=== PATIENT | female | born 1945 | race African-American/Black ===

== ENCOUNTER → 2020-06-04 | Outpatient (CLI) | payer OTHER ==
[~2020-06-04] MED LIST: ACTOS15 MG PO; JANUVIA25 MG PO; LIPITOR20 MG PO; LISINOPRIL10 MG PO; NORCO 5-325 TA1 EACH PO
== END ==
LOC: CAT 07:53
PROVIDERS: ATTEND Family Medicine
DX: Z13.6 Encounter for screening for cardiovascular disorders (principal); I25.10 Atherosclerotic heart disease of native coronary artery without angina pectoris; E78.00 Pure hypercholesterolemia, unspecified

== ENCOUNTER → 2020-06-10 | Outpatient (CLI) | payer OTHER | LOC: SJCVCIMAG 09:00 → SJCVC 09:00 | PROVIDERS: ATTEND Internal Medicine | DX: I08.2 Rheumatic disorders of both aortic and tricuspid valves (principal); R93.1 Abnormal findings on diagnostic imaging of heart and coronary circulation; E11.9 Type 2 diabetes mellitus without complications; Z88.8 Allergy status to other drugs, medicaments and biological substances; Z98.890 Other specified postprocedural states; Z79.899 Other long term (current) drug therapy; Z82.49 Family history of ischemic heart disease and other diseases of the circulatory system ==

== ENCOUNTER → 2020-10-15 | Outpatient (CLI) | payer OTHER | END | disposition home or self-care (01) | LOC: GI 08:09 | PROVIDERS: ATTEND Internal Medicine Gastroenterology | DX: K21.9 Gastro-esophageal reflux disease without esophagitis (principal); Z86.010 Personal history of colon polyps; Z80.0 Family history of malignant neoplasm of digestive organs; Z79.899 Other long term (current) drug therapy; Z88.0 Allergy status to penicillin ==

== ENCOUNTER 2021-04-10 07:13 | Inpatient (IN) | payer OTHER ==
[2021-04-10] VITALS (7 sets, daily range): BP systolic 117–158; BP diastolic 56–89
[~2021-04-10] VITALS: Ht 162.6 cm; Wt 65.8 kg
[2021-04-10 08:25] LABS: ABSOLUTE NEUTROPHILS 6.2 thou/uL (1.4-8.2); BASOPHILS 0.7 % (0.0-2.0); EOSINOPHILS 0.9 % (0.0-3.0); HEMATOCRIT 33.2 % (37.0-47.0); HEMOGLOBIN 10.8 gm/dL (12.0-15.0); LYMPHOCYTES 12.9 % (24.0-44.0); MCH 28.9 pg (26.0-34.0); MCHC 32.7 g/dL (28.0-37.0); MCV 88.5 fL (80.0-100.0); MONOCYTES 3.9 % (1.0-8.0); PLATELET COUNT 215 thou/uL (150-400); POLYS 81.6 % (36.0-66.0); RBC 3.75 mil/uL (4.20-5.00); RDW 13.5 % (10.5-14.5); WBC 7.6 thou/uL (4.0-11.0)
[2021-04-10 09:06] LABS: CALCIUM 8.8 mg/dL (8.5-10.1); POTASSIUM 3.7 mmol/L (3.5-5.1)
[2021-04-10 09:12] LABS: ALBUMIN 3.2 g/dL (3.4-5.0); TOTAL BILIRUBIN 0.6 mg/dL (0.2-1.0); TOTAL PROTEIN 6.5 g/dL (6.4-8.2)
--- NOTE | 2021-04-10 10:13 | EKG ---
[address] [address] ELECTROCARDIOGRAM REPORT Name: THAO JACKSON Room #: 445-P ADM IN .R.#: [id number] Admission: 04/10/21 Attend Phys: Matias Desir MD Discharge: Date of : 41 Report #: [id number] [facility] ED Test Date: 2021-04-10 Test Time: 08:19:19 Pat Name: THAO JACKSON Department: Room: [facility] Gender: F Home Service Director: no : 1945 Requested By: Curly Montague Order Number: [id number] MD: Jefry Sheth Measurements Intervals [place] Rate: 64 P: 74 PA: 197 QRS: 54 QRSD: 113 T: 44 QT: 474 QTc: 489 Interpretive Statements Sinus arrhythmia Consider left atrial enlargement RSR' in V1 or V2, probably normal variant Compared to ECG 06/15/2012 13:01:56 RSR' in V1 or V2 now present Electronically Signed On 04-10-2021 10:13:28 [employer] PROGRAM[employer] by Jefry Sheth [email or web address] <ELECTRONICALLY SIGNED> By: Jefry Sheth MD 04/10/21 1013 0819 8 MD ARGENIS Ramirez
--- NOTE | 2021-04-10 10:44 | NUR ---
Pt transferred to unit from ED. Pt a&ox4. C/o rt hip pain. Provider notified. New orders noted. Admission completed. Family at bedside. Surgery scheduled for tomorrow 04/11 11:30am. Call light within reach. Fall precautions in place. Will continue to monitor.
--- NOTE | 2021-04-11 00:41 | NUR ---
ASSUMED PT CARE AT 1900.PT WAS OBSERVED LYING ON HER BED IN THE COMPANY OF HER BROTHER AT SHIFT CHANGE.PT C/O PAIN TO HER R HIP,MANAGED WITH MED.PT ATE A LITTLE FROM THE THANKSGIVING DINNER BROUGHT BY HER FAMILY.PT NPO AT THIS TIME FOR SURGERY LATER IN THE DAY.CALL LIGHT WITHIN REACH.
[2021-04-11 08:10] VITALS: BP 134/60
--- NOTE | 2021-04-11 09:17 | NUR ---
Assumed care of pt at 0700. Pt a&ox4. C/o rt hip pain. IVF infusing. Ancef ordered pre-op. Pharmacy calls to verify since patient is allergic to penicillins. Nurse call provider. Provider states he still wants for patient to receive pre-op dose. Pharmacy notified and advised to call provider as well to verify.
[2021-04-11 16:21] VITALS: BP 139/57
[2021-04-11 20:48] VITALS: BP 129/67
--- NOTE | 2021-04-12 04:16 | NUR ---
PT WAS OBSERVED SITTING UP IN THE RECLINER IN HER ROOM WITH FAMILY AT HER SIDE AT SHIFT CHANGE.PT C/O PAIN TO HER R HIP,MANAGED WITH MED.PT IN A VERY GOOD SPIRIT AND VERY GRATEFUL AND APPRECAITIVE OF CARE BEING PROVIDED TO HER.PT'S UPPER LIP STILL SWOLLEN FROM SURGERY.DRSG TO HER R HIP C/D/I.ICE PACK APPPLIED.PT ABLE TO SLEEP SOME AT HS.CALL LIGHT WITHIN REACH.
--- NOTE | 2021-04-12 09:08 | NUR ---
Assumed care of pt at 0700. Pt a&ox4. Pain controlled with prn pain medications. Dressing c/d/i. WBAT. IVF infusing. Up x1 assist with walker and gait-belt. Call light within reach. Fall precautions in place. Will continue to monitor.
[2021-04-12 09:17] VITALS: BP 147/60
[2021-04-12 17:04] VITALS: BP 139/44
[2021-04-12 20:28] VITALS: BP 117/62
[2021-04-13 08:06] VITALS: BP 143/66
--- NOTE | 2021-04-13 11:38 | NUR ---
A/O X 4. ROOM AIR. STAND BY ASSIST WITH WALKER. LEFT AC IV SALINE LOCKED. 04/13 LAST BM. RIGHT HIP DRESSING HAS DRIED BROWN DRAINAGE. ICE PACK GIVEN FOR RIGHT HIP PAIN AND TRAMADOL. SR ON TELE. WBAT. DOESNT WANT OXYCODONE DUE TO IT MAKING HER HAVE N/V. LOVENOX FOR DVT PPX.
[2021-04-13 11:41] VITALS: BP 121/45
[2021-04-13 15:55] VITALS: BP 132/49
[2021-04-13 20:14] VITALS: BP 137/52
--- NOTE | 2021-04-14 04:39 | NUR ---
ASSUMED PT CARE AT 1900.PT OBSERVED EATING HER DINNER AT SHIFT CHANGE.PT DENIED PAIN SO FAR.UP WITH SBA/GB AND WALKER TO THE BR,GOOD ENDURANCE NOTED.DRSG TO HER R HIP DRY AND INTACT.ICE PACK APPLIED.PT ABLE TO MAKE HER NEEDS KNOWN.CALL LIGHT WITHIN REACH.
[2021-04-14 08:00] VITALS: BP 132/98
--- NOTE | 2021-04-14 08:53 | NUR ---
ASSUMED PT CARE THIS AM. PT IS ALERT & ORIENTED X4. PT HAS IV SITE ON LAC SALINE LOCKED. PT HAS TELE MONITOR ON. PT IS ACCUCHECK ACHS. PT IS ON ROOM AIR. PT IS UP WITH ASSIST X1 TO THE BATHROOM WITH GAITBELT AND WALKER. PT INFORMED ME THIS AM THAT SHE WANTS TO GO TO REHAB PRIOR GOING HOME. LAST BM WAS THIS AM. GIVEN PAIN MEDICATION PER PT REQUEST. PT IS CURRENTLY SITTING ON THE CHAIR WITH ALARM ON, CALL LIGHT WITHIN REACH. WILL CONTINUE TO MONITOR PT. FOLLOW POC.
--- NOTE | 2021-04-14 09:45 | NUR ---
76 yr old female went to ED after fall, complaints of pain on the right hip. History of previous right femur fracture with nailing many years ago. Dx:Right Basicervical hip fracture, status post op hip surgery. Cm visited with hawk and her son Alexander at bedside # [phone]. Prior to fall, she was independent. Lives at [facility]. Still works, [employer]. on her feet about 4 hours per day. Cooks and cleans. Manage her own medications. No dme. Drives. PCP Dr Pang. She requested rehab before going home independently. [facility] skilled list choice provided, [facility] and [facility]. Referral sent to [facility].
[2021-04-14 11:25] VITALS: BP 108/45
[2021-04-14 16:00] VITALS: BP 151/62
[2021-04-14 19:54] VITALS: BP 135/49
--- NOTE | 2021-04-15 02:09 | NUR ---
ASSUMED PT CARE AT 1900.PT WAS OBSERVED SITTING UP IN THE RECLINER IN HER ROOM WATCHING TV AT SHIFT CHANGE.PT DENIED PAIN SO FAR.PT IN A VERY GOOD MOOD.PT LOOKING FORWARD TO BE DC'D LATER IN THE DAY.CALL LIGHT WITHN REACH.
[2021-04-15 05:16] VITALS: BP 134/70
--- NOTE | 2021-04-15 09:24 | NUR ---
Assumed care of pt at 0700. Pt a&ox4. Pain controlled. Dressing c/d/i. SA to the toilet. Pt states she might be be to go home instead of rehab. Family at bedside. Call light within reach. Will continue to monitor.
--- NOTE | 2021-04-15 09:31 | NUR ---
[facility] called, center medical specialist. denied skilled auth. P2P today by 1330, # [phone] option 5. Cm visited with Dary and her son at bedside. Dary voice, no P2P i am doing better and I am going to go home with home health per Dary. List hh choice, referral sent to [facility] per patient request. Bedside nurse to notified surgeon.
[2021-04-15 11:21] VITALS: BP 134/70
[2021-04-15 11:40] VITALS: BP 134/70
[2021-04-15 16:40] VITALS: BP 134/55
[2021-04-15 19:04] VITALS: BP 140/64
--- NOTE | 2021-04-16 02:00 | NUR ---
PT IN A VERY GOOD MOOD AT SHIFT CHANGE.C/O PAIN TO HER R HIP,MANAGED WITH MED.PT UP WITH SBA/GB AND WALKER TO THE BR.GOOD ENDURANCE NOTED.DRSG TO HER R HIP C/D/I.PT ABLE TO MAKE HER NEEDS KNOWN.CALL LIGHT WITHIN REACH.
[2021-04-16 07:38] VITALS: BP 147/60
--- NOTE | 2021-04-16 10:44 | NUR ---
ASSUMED PT CARE THIS AM. PT IS ALERT & ORIENTED X4. PT HAS IV SITE ON LAC SALINE LOCKED. PT HAS TELE MONITOR ON. PT IS ACCUCHECK ACHS. PT HAS BILATERAL KNEE HIGH [facility]ES. GIVEN PAIN MEDICATION PER PT REQUEST. PT TOLERATED DIET AND MEDICATION WELL. PT IS UP WITH ASSIST WITH WALKER TO THE BATHROOM. PT IS ON ROOM AIR. AWAITING FOR DC ORDER TO GO HOME WITH HH TODAY. WILL CONTINUE TO MONITOR PT. FOLLOW POC.
[2021-04-16 13:07] VITALS: BP 134/70
[2021-04-16] MEDS ORDERED: PERCOCET 5-3251 EACH PO (14:42)
[2021-04-16] MEDS ORDERED: TRAMADOL 50 MG50 MG PO (14:54)
--- NOTE | 2021-04-16 16:52 | NUR ---
Dc orders faxed to [facility]. Pt dc'd home today with a FWW per [facility]. No other needs indicated.
== END 2021-04-16 16:40 | disposition home health service (06) | DRG 481 ==
LOC: ER 07:13 → 4S 08:35 → EROBS 08:35 → ER 08:52 → 4S 09:56
PROVIDERS: Emergency Medicine; ADMIT Surgery; ATTEND Surgery
PROC: 0QS604Z Reposition Right Upper Femur with Internal Fixation Device, Open Approach (ICD-10-PCS; principal; 2021-04-11)
DX: S72.091A Other fracture of head and neck of right femur, initial encounter for closed fracture (principal); D62 Acute posthemorrhagic anemia; E44.1 Mild protein-calorie malnutrition; E11.9 Type 2 diabetes mellitus without complications; Z20.822 Contact with and (suspected) exposure to COVID-19; E78.00 Pure hypercholesterolemia, unspecified; Z90.710 Acquired absence of both cervix and uterus; Z88.0 Allergy status to penicillin; W18.39XA Other fall on same level, initial encounter; Y93.89 Activity, other specified; Y92.098 Other place in other non-institutional residence as the place of occurrence of the external cause; Y99.8 Other external cause status
CPT/HCPCS: 10100; 50010; 50101; 50133; 50386; 51412; 51538; 52304; 56524; 57092; 59091; 59092; 59093; 59094; 62110; 62900; 70005